=== PATIENT | male | born 1975 | race Caucasian/White ===

== ENCOUNTER 2018-08-09 05:59 | Emergency (ER) | payer BC, OTHER ==
--- OUTSIDE RECORDS SUMMARY | 2018-08-09 06:02 | XMS REPORT ---
:1975 Author Organization eClinicalWorks Care Team Providers Name Role Phone Josiah Brown Provider Role Unavailable Allergies No Known Allergies Problems Problem Type Condition Code Onset Dates Condition Status Problem Obstructive sleep apnea G47.33 Active Problem Morbid (severe) obesity due to E66.01 Active excess calories Problem Depression with anxiety F41.8 Active Assessment Left ear impacted cerumen H61.22 Active Problem Body mass index (BMI) of 60.0-69.9 Z68.44 Active in adult Problem Varicose veins without complication I83.90 Active Medications Medication Code System Code Instructions Start End Date Status Dosage Date Paxil [facility] [id number] 20 MG Orally Active 1 tablet in Once a day the morning Results No Known Results Summary Purpose eClinicalWorks Submission
--- OUTSIDE RECORDS SUMMARY | 2018-08-09 06:02 | XMS REPORT ---
:1975 Author Organization eClinicalWorks Care Team Providers Name Role Phone Josiah Brown Provider Role Unavailable Allergies, Adverse Reactions, Alerts Substance Reaction Event Type N.K.D.A. Info Not Available Non Drug Allergy Problems Problem Type Condition Code Onset Dates Condition Status Assessment Encounter for general adult medical Z00.00 Active examination without abnormal findings Assessment Body mass index (BMI) of 60.0-69.9 Z68.44 Active in adult Assessment Tobacco abuse counseling Z71.6 Active Problem Obstructive sleep apnea G47.33 Active Problem Morbid (severe) obesity due to E66.01 Active excess calories Problem Depression with anxiety F41.8 Active Assessment Obstructive sleep apnea G47.33 Active Assessment Depression with anxiety F41.8 Active Problem Body mass index (BMI) of 60.0-69.9 Z68.44 Active in adult Problem Varicose veins without complication I83.90 Active Medications Medication Code System Code Instructions Start End Date Status Dosage Date Paxil [facility] [id number] 20 MG Orally Active 1 tablet in Once a day the morning Results No Known Results Summary Purpose eClinicalWorks Submission
--- OUTSIDE RECORDS SUMMARY | 2018-08-09 06:02 | XMS REPORT ---
:1975 Author Organization eClinicalWorks Care Team Providers Name Role Phone Josiah Brown Provider Role Unavailable Allergies No Known Allergies Problems Problem Type Condition Code Onset Dates Condition Status Problem Obstructive sleep apnea G47.33 Active Problem Morbid (severe) obesity due to E66.01 Active excess calories Problem Depression with anxiety F41.8 Active Assessment Acute otitis externa of left ear, H60.502 Active unspecified type Problem Body mass index (BMI) of 60.0-69.9 Z68.44 Active in adult Problem Varicose veins without complication I83.90 Active Medications Medication Code Code Instructions Start End Date Status Dosage System Date Ciprodex [facility] [id number] 0.3-0.1 % Otic April 24, Active 4 drops into Twice a day 2018 affected ear Paxil [facility] [id number] 20 MG Orally Active 1 tablet in Once a day the morning Results No Known Results Summary Purpose [employer] Submission
[2018-08-09] MEDS ORDERED: NA CHLORIDE 0.9% 1,000 ML ONE (07:04)
[2018-08-09 07:11] LABS: Absolute Lymphocytes (CBC) 0.6 K/uL (0.7-4.9); Absolute Monocytes 0.2 K/uL (0.1-1.3); Absolute Neutrophil 7.3 K/uL (1.8-8.0); Basophils % 0.2 % (0-1.3); Eosinophils % 0.2 % (0-4.4); Hematocrit 42.4 % (39.6-49.0); Lymphocytes % 6.9 % (15.3-44.8); MCH 30.8 pg (27.0-35.0); MCV 90.6 fL (80-100); MPV 7.9 fL (7.6-11.3); Monocytes % 2.8 % (3.3-12.3); RBC Red Blood Cell Count 4.68 M/uL (4.33-5.43)
[2018-08-09 07:11] LABS: Urine Blood NEGATIVE (NEG); Urine Glucose NEGATIVE (NEG); Urine Protein NEGATIVE (NEG); Urine Specific Gravity 1.025 (1.005-1.030)
[2018-08-09 07:14] LABS: ALT/SGPT 63 U/L (12-78); AST/SGOT 32 U/L (15-37); Albumin 3.9 g/dL (3.4-5.0); Alkaline Phosphatase 89 U/L (45-117); BUN Blood Urea Nitrogen 16 mg/dL (7-18); Bicarbonate 28 mmol/L (21-32); Bilirubin Direct 0.2 mg/dL (0-0.2); Bilirubin Total 0.6 mg/dL (0.2-1.0); Glucose Level 103 mg/dL (74-106); Lipase 65 U/L (73-393); Potassium 3.9 mmol/L (3.5-5.1); Protein, Total 7.4 g/dL (6.4-8.2); Sodium Level 139 mmol/L (136-145)
[2018-08-09 07:15] LABS: Urine RBC NONE SEEN /HPF (NONE SEEN)
[2018-08-09 07:16] LABS: Urine Bacteria NONE SEEN /HPF (NONE SEEN); Urine Culture Reflex Order NOT NEEDED
--- NOTE | 2018-08-09 07:38 | RAD REPORT ---
EXAM DESCRIPTION: CT - Stone Protocol - 08/09/2018 7:05 am CLINICAL HISTORY: Back pain, fevers and chills COMPARISON: None. TECHNIQUE: Axial 5 mm thick images were obtained without oral or IV contrast. The jfkia-[id number] span s the entirety of the system including uppermost abdomen and lung bases. All CT scans are performed using dose optimization technique as appropriate and may include automated exposure control or mA/KV adjustment according to patient size. FINDINGS: No hydronephrosis is present and no obstructing ureteral calculi. No suspicious renal mass es. Isodense masses and pyelonephritis are not excluded on a stone protocol CT scan. No urinary bladd er suspicious finding. Imaged portions of the liver, spleen and pancreas show no suspicious findings on non-contrast imaging . No gallbladder or biliary tree abnormality identified. No significant adrenal finding. Liver attenu ation indicates fatty infiltration. Prostate gland and seminal vesicles are normal range. No suspicious bowel findings. No appendicitis findings. No active GI process seen. No hernia, mass or bulky lymphadenopathy noted. No free air, free fluid or inflammatory stranding. No significant bony abnormality. IMPRESSION: No hydronephrosis, obstructing calculus or acute finding. Isodense masses and pyelonephritis are not excluded on stone protocol technique. No acute GI process seen. No acute findings identifiable.
[2018-08-09] MEDS ORDERED: CLINDAMYCIN 900MG/D5W 900 MG/50 ML BAG IV ONE (08:47)
--- NOTE | 2018-08-09 09:02 | ER ---
Nurse's Notes [facility] Name: Dave Smith Age: 43 yrs Sex: Male : 1975 Arrival Date: 08/09/2018 Time: 06:01 Bed 14 Private MD: Diagnosis: Low back pain;Fever, unspecified;Cellulitis of right lower limb Presentation: 08/09 06:25 Presenting complaint: Patient states: I am having back pain along with body shakes and jb4 chills that started yesterday. Transition of care: patient was not received from another setting of care. Onset of symptoms was August 08, 2018. Risk Assessment: Do you want to hurt yourself or someone else? Patient reports no desire to harm self or others. Initial Sepsis Screen: Does the patient meet any 2 criteria? Temp <36.0*C (96.8*F)) or > 38.3*C (100.9*F). HR > 90 bpm. Yes Does the patient have a suspected source of infection? No. Patient's initial sepsis screen is negative. Care prior to arrival: None. 06:25 Method Of Arrival: Ambulatory jb4 06:25 Acuity: BREE 3 jb4 Triage Assessment: 06:27 General: Appears in no apparent distress. uncomfortable, Behavior is calm, cooperative, jb4 appropriate for age. Pain: Complains of pain in lumbar area and right low back Pain does not radiate. Pain currently is 5 out of 10 on a pain scale. at worst was 9 out of 10 on a pain scale. EENT: No signs and/or symptoms were reported regarding the EENT system. Neuro: Level of Consciousness is awake, alert, obeys commands, Oriented to person, place, time, situation. Cardiovascular: Heart tones S1 S2 Patient's skin is warm and dry. Respiratory: Airway is patent Respiratory effort is even, unlabored, Respiratory pattern is regular, symmetrical, Breath sounds are clear bilaterally. GI: No signs and/or symptoms were reported involving the gastrointestinal system. : No signs and/or symptoms were reported regarding the genitourinary system. Derm: Skin is intact, Skin is pink, warm \T\ dry. Musculoskeletal: Circulation, motion, and sensation intact. Historical: - Allergies: 06:27 No Known Allergies; jb4 - Home Meds: 06:27 Paxil Oral [Active]; jb4 - PMHx: 06:27 Depression; jb4 - PSHx: 06:27 None; jb4 - Immunization history:: Adult Immunizations up to date, Flu vaccine status is unknown. - Social history:: Smoking status: Patient/guardian denies using tobacco, Patient uses alcohol, occasionally. - Ebola Screening: : No symptoms or risks identified at this time. Screenin:32 Abuse screen: Denies threats or abuse. Nutritional screening: No deficits noted. jb4 Tuberculosis screening: No symptoms or risk factors identified. Fall Risk None identified. Assessment: 06:32 General: see triage assessment. jb4 07:15 General: Appears in no apparent distress. comfortable, obese, Behavior is calm, rb1 cooperative, Reports chills for fever for. Pain: Denies pain. Neuro: Level of Consciousness is awake, alert, obeys commands, Oriented to person, place, time, situation. Cardiovascular: Capillary refill < 3 seconds is brisk in bilateral fingers. Respiratory: Airway is patent Respiratory effort is even, unlabored, Respiratory pattern is regular, symmetrical. Derm: Skin is pink, warm \T\ dry. 07:48 Reassessment: Notified Glo of temperature of 102.4. Received order to stop the NS rb1 1000 ml \T\ 125 ml/h and administer the NS 1 L as a bolus and to remove pt. socks. 08:15 Reassessment: Patient appears in no apparent distress at this time. Patient and/or rb1 family updated on plan of care and expected duration. Pain level reassessed. Patient is alert, oriented x 3, equal unlabored respirations, skin warm/dry/pink. 08:22 Reassessment: Pt. went to X-ray. rb1 08:38 Reassessment: Patient appears in no apparent distress at this time. Patient and/or rb1 family updated on plan of care and expected duration. Pain level reassessed. Temperature decreased to 99.2 orally. 09:06 Reassessment: Discharge pending due to IV antibiotics infusing. rb1 09:15 Reassessment: Patient appears in no apparent distress at this time. No changes from rb1 previously documented assessment. Vital Signs: 06:27 BP 160 / 91; Pulse 115; Resp 20; Temp 101.4; Pulse Ox 98% on R/A; Weight 176.9 kg; jb4 Height 5 ft. 11 in. (180.34 cm); Pain 5/10; 07:15 BP 158 / 83; Pulse 106; Resp 20; Pulse Ox 99% on R/A; rb1 07:30 BP 159 / 82; Pulse 103; Resp 20; Pulse Ox 100% on R/A; rb1 07:48 Temp 102.4(O); rb1 08:15 BP 149 / 80; Pulse 104; Resp 19; Pulse Ox 97% on R/A; Pain 0/10; rb1 08:21 rb1 08:38 Temp 99.2(O); rb1 09:15 BP 116 / 63; Pulse 94; Resp 20; Pulse Ox 99% ; rb1 06:27 Body Mass Index 54.39 (176.90 kg, 180.34 cm) jb4 07:48 Provider notified rb1 08:21 Pt. went to X-ray rb1 ED Course: 06:01 Patient arrived in ED. do 06:08 Zuly Cody FNP-C [facility]. snw 06:08 Romulo Rand MD is Attending Physician. snw 06:18 Julio Cesar Nunez, TRAY is Primary Nurse. jb4 06:26 Triage completed. jb4 06:27 Arm band placed on right wrist. jb4 06:30 Inserted saline lock: 20 gauge in right antecubital area, using aseptic technique. jb4 Blood collected. 06:32 Patient has correct armband on for positive identification. Bed in low position. Call jb4 light in reach. Side rails up X 1. Pulse ox on. NIBP on. 06:45 Initial lab(s) drawn, by ri, sent to lab. First set of blood cultures drawn by ri, jb4 Second set of blood cultures drawn Urine collected:. 07:02 CT completed. Patient moved to CT via wheelchair. Patient moved back from CT. kw1 07:05 CT Stone Protocol In Process Unspecified. EDMS 08:25 Patient moved to radiology via wheelchair. tm4 08:26 X-ray completed. Patient tolerated procedure well. tm4 08:30 Chest Pa And Lat (2 Views) XRAY In Process Unspecified. EDMS 09:18 No provider procedures requiring assistance completed. IV discontinued, intact, rb1 bleeding controlled, No redness/swelling at site. Pressure dressing applied. Administered Medications: 07:15 Drug: NS 0.9% 1000 ml Route: IV; Rate: 125 ml/hr; Site: right antecubital; rb1 07:49 Follow up: Rate change bolus rb1 08:46 Drug: Clindamycin 900 mg Route: IVPB; Infused Over: 30 mins; Site: right antecubital; rb1 09:16 Follow up: IV Status: Completed infusion rb1 09:17 Follow up: Response: No adverse reaction rb1 Outcome: 09:01 Discharge ordered by MD. harry 09:18 Discharged to home ambulatory. rb1 09:18 Condition: stable 09:18 Discharge instructions given to patient, Instructed on discharge instructions, follow up and referral plans. medication usage, Demonstrated understanding of instructions, follow-up care, medications, Prescriptions given X 2. 09:19 Patient left the ED. rb1 Signatures: Dispatcher [employer] EDMS Zuly Cody FNP-C LAUNDRY HOUSEKEEPING AIDE-Dinora Everett tm4 Zulma Rueda, RN RN rb1 Lizett Arechiga James, RN RN jb4 Elvi Hickman kw1 Corrections: (The following items were deleted from the chart) 07:44 07:15 BP 158 / 83; Pulse 106bpm; Resp 20bpm; Pulse Ox 99% RA; jb4 jb4 07:44 07:10 General: Appears in no apparent distress. comfortable, obese, Behavior is calm, jb4 cooperative, Reports chills for fever for jb4 :44 07:10 Neuro: Level of Consciousness is awake, alert, obeys commands, Oriented to jb4 person, place, time, situation, jb4 07:44 07:10 Pain: Complains of pain in right low back jb4 jb4 07:44 07:10 Cardiovascular: Capillary refill < 3 seconds is brisk in bilateral fingers jb4 jb4 07:44 07:10 Respiratory: Airway is patent Respiratory effort is even, unlabored, Respiratory jb4 pattern is regular, symmetrical, jb4 :44 07:10 Derm: Skin is pink, warm \T\ dry. jb4 jb4 07:52 07:15 Temp 102.4F Oral; Provider notified; rb1 rb1
--- NOTE | 2018-08-09 09:02 | EDPHYS ---
Physician Documentation [facility] Name: Dave Smith Age: 43 yrs Sex: Male : 1975 Arrival Date: 08/09/2018 Time: 06:01 Bed 14 Private MD: ED Physician Romulo Rand HPI: 08/09 06:48 This 43 yrs old Male presents to ER via Ambulatory with complaints of Back snw Pain, Chills, Shaking. 06:48 The patient presents with pain that is acute, s/p using machine container washer one week ago, snw saw chiropractor and felt a bit better. Pt states today with more intense back pain, chills. The symptoms are located in the low back. Onset: The symptoms/episode began/occurred gradually, 1 week(s) ago, and became worse and became persistent. The pain does not radiate. Associated signs and symptoms: Pertinent positives: fever. The problem was sustained using machine container washer. Modifying factors: The patient symptoms are alleviated by nothing. Severity of symptoms: At their worst the symptoms were severe. The patient has not experienced similar symptoms in the past. The patient has not recently seen a physician, the patient's primary care provider is Dr. Ibeth Krishnan x 1 visit. Pt took three tylenol and three motrin just PAINTER HELPER, temp 101.4 in ED. Historical: - Allergies: 06:27 No Known Allergies; jb4 - Home Meds: 06:27 Paxil Oral [Active]; jb4 - PMHx: 06:27 Depression; jb4 - PSHx: 06:27 None; jb4 - Immunization history:: Adult Immunizations up to date, Flu vaccine status is unknown. - Social history:: Smoking status: Patient/guardian denies using tobacco, Patient uses alcohol, occasionally. - Ebola Screening: : No symptoms or risks identified at this time. ROS: 06:48 Eyes: Negative for injury, pain, redness, and discharge, ENT: Negative for injury, snw pain, and discharge, Neck: Negative for injury, pain, and swelling, Cardiovascular: Negative for chest pain, palpitations, and edema, Respiratory: Negative for shortness of breath, cough, wheezing, and pleuritic chest pain, Abdomen/GI: Negative for abdominal pain, nausea, vomiting, diarrhea, and constipation, : Negative for injury, bleeding, discharge, and swelling, MS/Extremity: Negative for injury and deformity, Skin: Negative for injury, rash, and discoloration, Neuro: Negative for headache, weakness, numbness, tingling, and seizure. 06:48 Constitutional: Positive for fatigue, fever, malaise. 06:48 Back: Positive for pain at rest, pain with movement. Exam: 06:45 Head/Face: Normocephalic, atraumatic. Eyes: Pupils equal round and reactive to light, snw extra-ocular motions intact. Lids and lashes normal. Conjunctiva and sclera are non-icteric and not injected. Cornea within normal limits. Periorbital areas with no swelling, redness, or edema. ENT: Nares patent. No nasal discharge, no septal abnormalities noted. Tympanic membranes are normal and external auditory canals are clear. Oropharynx with no redness, swelling, or masses, exudates, or evidence of obstruction, uvula midline. Mucous membranes moist. Neck: Trachea midline, no thyromegaly or masses palpated, and no cervical lymphadenopathy. Supple, full range of motion without nuchal rigidity, or vertebral point tenderness. No Meningismus. Chest/axilla: Normal chest wall appearance and motion. Nontender with no deformity. No lesions are appreciated. 06:45 Constitutional: The patient appears awake, anxious, obese, restless, uncomfortable. 06:45 Cardiovascular: Rate: tachycardic, Rhythm: regular, Pulses: no pulse deficits are appreciated, Heart sounds: normal. 06:45 Respiratory: the patient does not display signs of respiratory distress, Respirations: shallow respirations, Breath sounds: are clear throughout. 06:45 Abdomen/GI: Exam negative for 06:45 Back: pain, that is mild, that is moderate, ROM is normal, normal spinal alignment noted, vertebral tenderness, is not appreciated, muscle spasm, is not present. 06:45 Skin: Appearance: Color: pale, diaphoresis is noted. 06:45 Neuro: Exam negative for acute changes. Vital Signs: 06:27 BP 160 / 91; Pulse 115; Resp 20; Temp 101.4; Pulse Ox 98% on R/A; Weight 176.9 kg; jb4 Height 5 ft. 11 in. (180.34 cm); Pain 5/10; 07:15 BP 158 / 83; Pulse 106; Resp 20; Pulse Ox 99% on R/A; rb1 07:30 BP 159 / 82; Pulse 103; Resp 20; Pulse Ox 100% on R/A; rb1 07:48 Temp 102.4(O); rb1 08:15 BP 149 / 80; Pulse 104; Resp 19; Pulse Ox 97% on R/A; Pain 0/10; rb1 08:21 rb1 08:38 Temp 99.2(O); rb1 09:15 BP 116 / 63; Pulse 94; Resp 20; Pulse Ox 99% ; rb1 06:27 Body Mass Index 54.39 (176.90 kg, 180.34 cm) jb4 07:48 Provider notified rb1 08:21 Pt. went to X-ray rb1 MDM: 06:44 Patient medically screened. snw 09:06 Data reviewed: vital signs, nurses notes. Data interpreted: Pulse oximetry: on room air snw is 97 %. Interpretation: normal. Counseling: I had a detailed discussion with the patient and/or guardian regarding: the historical points, exam findings, and any diagnostic results supporting the discharge/admit diagnosis, the presence of at least one elevated blood pressure reading (>120/80) during this emergency department visit, lab results, radiology results, the need for outpatient follow up, to return to the emergency department if symptoms worsen or persist or if there are any questions or concerns that arise at home. Response to treatment: the patient's symptoms have mildly improved after treatment. Special discussion: I have referred the patient to see his PCP for further evaluation of high blood pressure. I discussed in detail with the patient the higher chance of wound infection based on his presenting history. Based on the history and exam findings, there is no indication for further emergent testing or inpatient evaluation. I discussed with the patient/guardian the need to see the primary care provider for further evaluation of the symptoms. 08/09 06:09 Order name: Urine Culture snw 08/09 06:09 Order name: Urine Microscopic Only; Complete Time: 07:29 snw 08/09 06:23 Order name: Flu; Complete Time: 07:29 snw 08/09 06:23 Order name: Basic Metabolic Panel; Complete Time: 07:29 snw 08/09 06:23 Order name: CBC with Diff snw 08/09 06:23 Order name: Hepatic Function; Complete Time: 07:29 snw 08/09 06:23 Order name: CT Stone Protocol; Complete Time: 07:48 snw 08/09 06:23 Order name: Lipase; Complete Time: 07:29 snw 08/09 06:23 Order name: Blood Culture Adult (2) snw 08/09 06:58 Order name: Urine Dipstick--Ancillary (enter results); Complete Time: 07:29 mw2 08/09 07:15 Order name: CBC Smear Scan EDMS 08/09 08:01 Order name: Chest Pa And Lat (2 Views) XRAY snw 08/09 06:09 Order name: Urine Dipstick-Ancillary (obtain specimen); Complete Time: 07:09 snw 08/09 06:23 Order name: IV Saline Lock; Complete Time: 07:09 snw 08/09 06:23 Order name: Labs collected and sent; Complete Time: 07:09 snw Administered Medications: 07:15 Drug: NS 0.9% 1000 ml Route: IV; Rate: 125 ml/hr; Site: right antecubital; rb1 07:49 Follow up: Rate change bolus rb1 08:46 Drug: Clindamycin 900 mg Route: IVPB; Infused Over: 30 mins; Site: right antecubital; rb1 09:16 Follow up: IV Status: Completed infusion rb1 09:17 Follow up: Response: No adverse reaction rb1 Disposition: 19:22 Co-signature as Attending Physician, Romulo Rand MD. rn Disposition: 08/09/18 09:01 Discharged to Home. Impression: Low back pain, Fever, unspecified, Cellulitis of right lower limb. - Condition is Stable. - Discharge Instructions: Back Pain, Adult, Cellulitis, Adult, Hypertension, Musculoskeletal Pain, Back Exercises, [id number], Cryotherapy, Rehydration, Adult, Heat Therapy. - Prescriptions for Clindamycin HCl 300 mg Oral Capsule - take 1 capsule by ORAL route every 6 hours for 10 days; 40 capsule. orphenadrine citrate 100 mg Oral Tablet Sustained Release - take 1 tablet by ORAL route 2 times per day As needed; 20 tablet. - Work release form, Medication Reconciliation Form, Thank You Letter, Antibiotic Education, Prescription Opioid Use form. - Follow up: Private Physician; When: 2 - 3 days; Reason: Recheck today's complaints, Continuance of care, Re-evaluation by your physician. Follow up: Emergency Department; When: As needed; Reason: Worsening of condition. Signatures: Dispatcher [employer] EDZuly Mendoza, FREELANCE GRAPHIC DESIGNER-C FREELANCE GRAPHIC DESIGNER-Csnw Romulo Rand MD MD rn Zulma Rueda RN RN rb1 Julio Cesar Nunez RN RN jb4 Corrections: (The following items were deleted from the chart) 09:19 09:01 08/09/2018 09:01 Discharged to Home. Impression: Low back pain; Fever, rb1 unspecified; Cellulitis of right lower limb. Condition is Stable. Discharge Instructions: Back Pain, Adult, Cellulitis, Adult, Hypertension, Musculoskeletal Pain, Back Exercises, Knby-an-Zcap, Cryotherapy, Rehydration, Adult, Heat Therapy. Prescriptions for Clindamycin HCl 300 mg Oral Capsule - take 1 capsule by ORAL route every 6 hours for 10 days; 40 capsule, orphenadrine citrate 100 mg Oral Tablet Sustained Release - take 1 tablet by ORAL route 2 times per day As needed; 20 tablet. and Forms are Work release form, Medication Reconciliation Form, Thank You Letter, Antibiotic Education, Prescription Opioid Use. Follow up: Private Physician; When: 2 - 3 days; Reason: Recheck today's complaints, Continuance of care, Re-evaluation by your physician. Follow up: Emergency Department; When: As needed; Reason: Worsening of condition. snw
[2018-08-09 10:00] LABS: Blood Morphology Comment NOT SEEN (NOT SEEN); Platelet Estimate ADEQ; Urine White Blood Cell Casts OK
--- NOTE | 2018-08-09 11:31 | RAD REPORT ---
EXAM DESCRIPTION: RAD - Chest Pa And Lat (2 Views) - 08/09/2018 8:32 am CLINICAL HISTORY: Chest pain, back pain COMPARISON: None. TECHNIQUE: PA and lateral views of the chest were obtained. FINDINGS: The lungs are clear of a focal mass, infiltrate or failure finding. Lung markings are mild ly prominent. This could be baseline for the patient or indicate a mild interstitial edema or infiltr ate. Heart size is normal and central vasculature is within normal limits. No pleural effusion or pneumothorax seen. No acute bony finding noted. No aortic abnormality. IMPRESSION: Baseline examination shows mild prominence of the interstitial markings. This could be n ormal baseline for the patient or indicate mild edema or infiltrate. No focal consolidation.
== END 2018-08-09 09:19 | disposition home or self-care (01) ==
LOC: ER 05:59
DX: L03.115 Cellulitis of right lower limb (principal); R50.9 Fever, unspecified; F32.9 Major depressive disorder, single episode, unspecified
CPT/HCPCS: 36415; 71046; 74176; 76377; 80048; 80076; 81003; 81015; 83690; 85025; 87040; 87086; 87088; 87804; 96365; 99284; J7030

== ENCOUNTER 2021-08-24 18:33 | Emergency (ER) | payer BC, OTHER ==
[2021-08-24] MEDS ORDERED: ACETAMINOPHEN 325 MG TABLET ONE (19:15)
[2021-08-24] MEDS ORDERED: IBUPROFEN 400 MG TAB ONE (19:15)
[2021-08-24] MEDS ORDERED: TRAMADOL HCL 50 MG TAB ONE (19:17)
--- NOTE | 2021-08-24 20:08 | RAD REPORT ---
EXAM DESCRIPTION: RAD - Foot Right 3 View - 08/24/2021 7:51 pm CLINICAL HISTORY: PAIN COMPARISON: <Comparisons> FINDINGS: Nondisplaced fracture along the metadiaphysis of the fifth proximal metatarsal. IMPRESSION: Nondisplaced fifth proximal metadiaphyseal metatarsal fracture.
--- NOTE | 2021-08-24 20:22 | ER ---
Nurse's Notes [facility] Name: Dave Smith Age: 46 yrs Sex: Male : 1975 Arrival Date: 08/24/2021 Time: 18:37 Bed 25 Private MD: Diagnosis: Nondisplaced fracture of fifth metatarsal bone, right foot Presentation: 08/24 18:49 Chief complaint: Patient states: Saw Dr Marx about two weeks ago for Right foot vg1 pain. Pt states that PCP stated 'it may be a nerve issue'. Pt states that today heard and felt a pop from fifth digit up to ankle. Pt states pain 5/10 now but when bearing weight its 10/10 and is unable to walk well. Coronavirus screen: Vaccine status: Patient reports receiving the 2nd dose of the covid vaccine. Client denies travel out of the [place] in the last 14 days. Ebola Screen: Patient negative for fever greater than or equal to 101.5 degrees Fahrenheit, and additional compatible Ebola Virus Disease symptoms. Initial Sepsis Screen: Does the patient meet any 2 criteria? No. Patient's initial sepsis screen is negative. Does the patient have a suspected source of infection? No. Patient's initial sepsis screen is negative. Risk Assessment: Do you want to hurt yourself or someone else? Patient reports no desire to harm self or others. Onset of symptoms was August 24, 2021. 18:49 Method Of Arrival: Wheelchair vg1 18:49 Acuity: BREE 4 vg1 Triage Assessment: 18:52 General: Appears in no apparent distress. uncomfortable, Behavior is calm, cooperative. vg1 Pain: Complains of pain in lateral side of right foot, right lateral malleolus, right fifth toe and Right fifth toenail Pain currently is 5 out of 10 on a pain scale. at worst was 10 out of 10 on a pain scale. Historical: - Allergies: 18:52 No Known Allergies; vg1 - Home Meds: 18:52 Paxil Oral [Active]; vg1 - PMHx: 18:52 Depression; vg1 - PSHx: 18:52 None; vg1 - Immunization history:: Adult Immunizations up to date, Client reports receiving the 2nd dose of the Covid vaccine. - Social history:: Smoking status: Patient reports use of chewing tobacco. Screenin:20 Abuse screen: Denies threats or abuse. Nutritional screening: No deficits noted. ad1 Tuberculosis screening: No symptoms or risk factors identified. Fall Risk None identified. Assessment: 19:14 General: Appears in no apparent distress. Behavior is calm, cooperative, appropriate ad1 for age. Pain: Complains of pain in right lateral foot in area beteween his ankle and small toe. Pain currently is 5 out of 10 on a pain scale. at worst was 10 out of 10 on a pain scale. Neuro: No deficits noted. Cardiovascular: No deficits noted. Heart tones S1 S2 present. Respiratory: No deficits noted. Airway is patent Trachea midline. GI: No signs and/or symptoms were reported involving the gastrointestinal system. : No signs and/or symptoms were reported regarding the genitourinary system. EENT: No signs and/or symptoms were reported regarding the EENT system. Derm: Skin is intact. Musculoskeletal: Reports pain to left foot 10/10 with ambulation. 20:00 Reassessment: No changes from previously documented assessment. Patient and/or family ad1 updated on plan of care and expected duration. Pain level reassessed. Patient is alert, oriented x 3, equal unlabored respirations, skin warm/dry/pink. 21:00 Reassessment: Patient is alert, oriented x 3, equal unlabored respirations, skin ad1 warm/dry/pink. Applied walking boot at this time. Vital Signs: 18:49 BP 151 / 74; Pulse 65; Resp 18; Temp 97.6; Pulse Ox 100% ; Weight 199.58 kg; Height 5 vg1 ft. 11 in. (180.34 cm); Pain 5/10; 19:22 BP 136 / 73; Pulse 60; Resp 18; Pulse Ox 99% ; ad1 20:30 BP 144 / 77; Pulse 57; Resp 18; Pulse Ox 99% ; ad1 18:49 Body Mass Index 61.37 (199.58 kg, 180.34 cm) vg1 ED Course: 18:37 Patient arrived in ED. mr 18:52 Triage completed. vg1 18:52 Arm band placed on. vg1 19:00 Danis Quezada PA is PHCP. cp 19:00 Opal Covington MD is Attending Physician. cp 19:51 XRAY Foot RIGHT 3 View In Process Unspecified. EDMS 20:16 Librado Holden MD is Referral Physician. cp 21:20 Patient has correct armband on for positive identification. ad1 21:20 No provider procedures requiring assistance completed. Patient did not have IV access ad1 during this emergency room visit. Administered Medications: 19:20 Drug: Ibuprofen 800 mg Route: PO; fu 21:13 Follow up: Response: No adverse reaction ad1 19:20 Drug: Tylenol 650 mg Route: PO; fu 21:12 Follow up: Response: No adverse reaction ad1 19:20 Drug: UltRAM (traMADol) 50 mg Route: PO; fu 21:12 Follow up: Response: No adverse reaction ad1 Outcome: 20:21 Discharge ordered by MD. cp 21:18 Discharged to home with crutches. ad1 21:18 Condition: stable 21:18 Discharge instructions given to patient, Instructed on discharge instructions, follow up and referral plans. Demonstrated understanding of instructions, follow-up care, medications, Prescriptions given X 2. 21:21 Patient left the ED. ad1 Signatures: Dispatcher [employer] [facility] Nevaeh Escobedo Anna, RN RN ad1 Danis Quezada PA PA Les Melchor, RN RN Piper De Leon RN RN vg1
--- NOTE | 2021-08-24 20:22 | EDPHYS ---
Physician Documentation [facility] Name: Dave Smith Age: 46 yrs Sex: Male : 1975 Arrival Date: 08/24/2021 Time: 18:37 Bed 25 Private MD: ED Physician Opal Covington HPI: 08/24 19:10 This 46 yrs old Male presents to ER via Wheelchair with complaints of Foot cp Pain. 19:10 The patient presents with pain, that is acute. cp 19:10 The complaints affect the lateral aspect of right foot. Onset: The symptoms/episode cp began/occurred 2 week(s) ago. Modifying factors: the symptoms are aggravated by weight bearing. 19:10 Associated signs and symptoms: Pertinent negatives calf tenderness, numbness, warmth. cp Historical: - Allergies: 18:52 No Known Allergies; vg1 - Home Meds: 18:52 Paxil Oral [Active]; vg1 - PMHx: 18:52 Depression; vg1 - PSHx: 18:52 None; vg1 - Immunization history:: Adult Immunizations up to date, Client reports receiving the 2nd dose of the Covid vaccine. - Social history:: Smoking status: Patient reports use of chewing tobacco. ROS: 19:15 MS/extremity: Positive for pain, of the lateral side of right foot, Negative for injury cp or acute deformity, decreased range of motion. 19:15 Constitutional: Negative for body aches, chills, fever, poor PO intake. cp 19:15 Respiratory: Negative for cough, shortness of breath, wheezing. 19:15 Back: Negative for pain at rest, pain with movement. 19:15 Skin: Negative for rash. 19:15 Neuro: Negative for numbness. 19:15 All other systems are negative. Exam: 19:20 Constitutional: The patient appears in no acute distress, alert, awake, non-toxic, well cp developed, well nourished, obese. 19:20 Head/Face: Normocephalic, atraumatic. cp 19:20 Cardiovascular: Rate: normal. 19:20 Respiratory: the patient does not display signs of respiratory distress, Respirations: normal, no use of accessory muscles, no retractions. 19:20 Musculoskeletal/extremity: Extremities: grossly normal except: noted in the lateral side of right foot at base of right fifth metatarsal: pain, tenderness, There is no evidence of ecchymosis, erythema, Pulses: noted to be 2+ in the right dorsalis pedis artery, Joints: the right ankle displays swelling, no pain and/or tenderness to palpation. 19:20 Skin: cellulitis, is not appreciated, no rash present. Vital Signs: 18:49 BP 151 / 74; Pulse 65; Resp 18; Temp 97.6; Pulse Ox 100% ; Weight 199.58 kg; Height 5 vg1 ft. 11 in. (180.34 cm); Pain 5/10; 19:22 BP 136 / 73; Pulse 60; Resp 18; Pulse Ox 99% ; ad1 20:30 BP 144 / 77; Pulse 57; Resp 18; Pulse Ox 99% ; ad1 18:49 Body Mass Index 61.37 (199.58 kg, 180.34 cm) vg1 Procedures: 21:20 Splinting: Splint applied to right foot using walking boot. applied by nurse. Examined cp by me, post splint application: neurovascular intact, Patient tolerated well. MDM: 19:00 Patient medically screened. cp 20:00 Differential diagnosis: dislocation, closed fracture. cp 20:20 Data reviewed: vital signs, nurses notes, radiologic studies, plain films. cp 20:20 Test interpretation: by ED physician or midlevel provider: plain radiologic studies. cp Counseling: I had a detailed discussion with the patient and/or guardian regarding: the historical points, exam findings, and any diagnostic results supporting the discharge/admit diagnosis, radiology results, the need for outpatient follow up, for definitive care, a orthopedic surgeon, to return to the emergency department if symptoms worsen or persist or if there are any questions or concerns that arise at home. Response to treatment: the patient's symptoms have markedly improved after treatment, and as a result, I will discharge patient. 08/24 19:10 Order name: XRAY Foot RIGHT 3 View; Complete Time: 20:11 cp 08/24 20:11 Order name: Walking boot; Complete Time: 21:13 cp 08/24 20:11 Order name: Crutches; Complete Time: 21:13 cp Administered Medications: 19:20 Drug: Ibuprofen 800 mg Route: PO; fu 21:13 Follow up: Response: No adverse reaction ad1 19:20 Drug: Tylenol 650 mg Route: PO; fu 21:12 Follow up: Response: No adverse reaction ad1 19:20 Drug: UltRAM (traMADol) 50 mg Route: PO; fu 21:12 Follow up: Response: No adverse reaction ad1 Disposition: 20:30 Chart complete. cp Disposition Summary: 08/24/21 20:21 Discharge Ordered Location: Home cp Problem: new cp Symptoms: have improved cp Condition: Stable cp Diagnosis - Nondisplaced fracture of fifth metatarsal bone, right foot cp Followup: cp - With: Librado Holden MD - When: 1 week - Reason: Recheck today's complaints Discharge Instructions: - Discharge Summary Sheet cp - Metatarsal Fracture cp Forms: - Medication Reconciliation Form cp - Thank You Letter cp - Antibiotic Education cp - Prescription Opioid Use cp - Work release form fu Prescriptions: - Ibuprofen 800 mg Oral Tablet - take 1 tablet by ORAL route every 8 hours As needed take with food; 30 tablet; cp Refills: 0, Product Selection Permitted - Ultracet 37.5-325 mg Oral Tablet - take 1 tablet by ORAL route every 6 hours - for up to 5 days; do not exceed 8 cp tablets per day.; 20 tablet; Refills: 0, Product Selection Permitted Addendum: 08/29/2021 15:38 Co-signature as Attending Physician, Opal rodrigues a2 Signatures: Dispatcher [employer] EDDanis Mcguire PA PA cp Umadhay, Felix, RN Opal Coppola MD MD ma2 Garcia, Victoria, RN RN vg1 DelToro, Anna RN ad1
[2021-08-24 21:25] VITALS: TEMP 97.6
[2021-08-24 21:27] VITALS: O2SAT 99
[2021-08-24 21:29] VITALS: BP 144/77
--- OUTSIDE RECORDS SUMMARY | 2021-09-01 13:27 | XMS REPORT | Continuity of Care Document ---
:1975 Author Organization [facility] t Address [address] [place] [address] Care Team Providers Name Role Phone PCP, DOES NOT HAVE A Primary Care Physician Unavailable Janene APONTE Attending Clinician Unavailable Fay LOMBARDI L Attending Clinician Payers Payer Name Policy Type Policy Number Effective Date Expiration Date 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 R sulcus Obstructiv Obstructiv Disease Active Overview : Univers e sleep e sleep 1-20 Formattin ity o f apnea apnea 00:00: g of this [place] 00 note Medical might be Branch different from the original. Sleep study 10/22/2015 [facility] [address] ,[address], [place], [place] BIPAP prescribe d Gastroesop Gastroesop Disease Active U nivers hageal hageal 1-20 ity of reflux reflux 00:00: [place] disease disease 00 Medical with with Branch esophagiti esophagiti s s Nonspecifi Nonspecifi Disease Active Overview : Univers c c 3- Formattin ity of elevation elevation 00:00: g of this [place] levels of levels 00 note Medi alena of of might be Branch transamina transamina different se or se or from the lactic lactic original. acid acid Liver dehydrogen dehydrogen tests ase (LDH) ase (LDH) (AST and ALT) are slightly high at 42 and 64 Obesity Obesity Disease Active Univers 12-16 ity of 00:00: [place] 00 Medical Branch Tobacco Tobacco Disease Active Overview: Univ ers abuse abuse 12-16 Formattin ity of 00:00: g of this note Medical might be Branch different from the original. Dips 1/2 can daily Headache Headache Disease Active Overview: Un pratima 4-12 Formattin ity of 00:00: g of this note Medical might be Branch different from the original. ICD10 Diagnosis Term Back Tender Paper Machine Utility Rosacea Rosacea Disease Active Univers 4- ity of 00:00: Medical Branch Daytime Daytime Disease Active Univers somnolence somnolence 01-29 it y of 00:00: Medical Branch Allergic Allergic Disease Active 2011-10 Overview: Un pratima rhinitis rhinitis 2-19 Formattin ity of 00:00: g of this 00 note Medical might be Branch different from the original. ICD10 Diagnosis Term Back Tender [employer] Machine Utility Undersocia Undersocia Disease Active 2009-10 Overview : Univers lized lized 2-16 Formattin ity of conduct conduct 00:00: g of this [place] disorder, disorder, 00 note Medi alena aggressive aggressive might be Branch type type different from the original. ICD10 Diagnosis Term Back Tender [employer] Machine Utility Carbuncle Carbuncle Disease Active Overview: Univers and and 8 Formattin ity of Furuncle Furuncle 00:00: g of this [place] as of [place] of [place] 00 note Me dical might be Branch different from the original. R buttock Depressive Depressive Disease Active Overview : Univers disorder disorder 8-12 Formattin ity of 00:00: g of this [place] 00 note Medical might be Branch different from the original. ICD10 Diagnosis Term Back Tender Paper Machine Utility Acute Acute Disease Active Overview: Univer s upper upper 6-01 Formattin ity of respirator respirator 00:00: g of this [place] y y 00 note Medical infection infection might be Br anch different from the original. ICD10 Diagnosis Term Back Tender Paper Machine Utility Allergies, Adverse Reactions, Alerts Allergy Allergy Status Severity Reaction(s) Onset Inactive Treating Comm ents Source Name Type Date Date Clinician Fluticas Propensi Active Unknown - 2012-10 BAD Uni vers one ty to See comments 12-16 HEADACHES i ty of Propiona adverse 00:00: [place] te reaction 00 Medical s to Branch drug FLUTICAS DRUG Active Med Unknown-Cmnt 2012-10 Un pratima ONE INGREDI 2 ity of PROPIONA 00:00: [place] TE 00 Medical Branch Social History Social Habit Start Date Stop Date Quantity Comments Source History SDOH University o f Alcohol Frequency [facility] edical Branch History SDOH University o f Alcohol Std [place] Medical Drinks Branch History SDWY University o f Alcohol Binge [place] Medic al Branch Exposure to Not sure [facility] SARS-CoV-2 [facility] (event) Branch History of Snuff User University of tobacco use [facility] Alcohol intake 2021-08-29 2021-08-29 Current drinker Unive rsity of 00:00:00 00:00:00 of alcohol [facility] (finding) Branch Alcohol Comment 2009-05-31 2009-05-31 6 beers/wwek Univers ity of 00:00:00 00:00:00 [facility] Sex Ass[birth year] Universit y of 00:00:00 00:00:00 [facility] Smoking Status Start Date Stop Date Source Never smoker [facility] Medications Ordered Filled Start Stop Current Ordering Indication Dosage Frequency Signature Comments Components Source Medication Medication Date Date Medication? Clinician (SIG) Name Name ibuprofen 2020-10 Yes Univers 800 mg 1-06 ity of tablet 00:00: [place] 00 [facility] traMADoL-ac 2020-10 Yes Tonia reveles etaminophen 1-06 ity of 37.5-325 mg 00:00: [place] per tablet 00 Medical Branch ibuprofen 2020-10 Yes Univers 800 mg 1-06 ity of tablet 00:00: [place] [facility] traMADoL-ac 2020-10 Yes Tonia s etaminophen 1-06 ity of 37.5-325 mg 00:00: [place] per tablet Medical Branch pregabalin 2020-10 Yes Univers 75 mg 0-21 ity of capsule 00:00: [place] 00 [facility] Branch pregabalin 2020-10 Yes Univers 75 mg 0-21 ity of capsule 00:00: Medical Branch hydroCHLORO 0 Yes Univer s thiazide 25 9-20 ity of mg tablet 00:00: Medical Branch meloxicam Yes Univers 7.5 mg 9-20 ity of tablet 00:00: Medical Branch hydroCHLORO Yes Univer s thiazide 25 9-20 ity of mg tablet 00:00: Medical Branch meloxicam Yes Univers 7.5 mg 9-20 ity of tablet 00:00: [place] Medical Branch naproxen Yes [id number] 500mg Take 1 Un pratima 500 mg 4-24 tablet by ity of tablet 00:00: mouth 2 [place] (two) Medical times Branch daily with meals. naproxen Yes [id number] 500mg Take 1 Un pratima 500 mg 4-24 tablet by ity of tablet 00:00: mouth 2 [place] (two) Medical times Branch daily with meals. PAROXETINE Yes TAKE ONE Uni vers 20 mg 4-09 TABLET BY ity of tablet 00:00: MOUTH ONCE [place] DAILY Medical Branch PAROXETINE Yes TAKE ONE Uni vers 20 mg 4-09 TABLET BY ity of tablet 00:00: MOUTH ONCE [place] DAILY Medical Branch OMEPRAZOLE Yes [id number] TAKE ONE Univers 40 mg 6-04 CAPSULE BY ity of capsule 00:00: MOUTH ONCE [facility] DAILY Medical Branch OMEPRAZOLE Yes [id number] TAKE ONE Univers 40 mg 6-04 CAPSULE BY ity of capsule 00:00: MOUTH ONCE [facility] DAILY Medical Branch amitriptyli Yes [id number] 10mg Take 1 Univers ne 10 mg 3-24 tablet by ity of tablet 00:00: mouth at [place] [address] bedtime. Medical 1-3 tablet Branch at the lastest 8 PM amitriptyli Yes [id number] 10mg Take 1 Univers ne 10 mg 3-24 tablet by ity of tablet 00:00: mouth at [place] [address] bedtime. Medical 1-3 tablet Branch at the lastest 8 PM Paroxetine Paroxetine Yes Fabrizio Robertson [address] [facility] HCl HCl [place] [facility] Hydrochloro Hydrochloro Yes Fabrizio Robertson [address] [facility] thiazide thiazide [place] [facility] Ciprodex Ciprodex Yes Kin Robertson [address] [facility] Immunizations Ordered Filled Immunization Date Status Comments Sour e Immunization Name Name Influenza Virus 2016-12-19 Completed Universit y of Vaccine 00:00:00 [facility] Influenza Virus 2016-12-19 Completed Universit y of Vaccine 00:00:00 [facility] Influenza Virus 2013-10-15 Completed Universit y of Vaccine (3+ yrs) 00:00:00 [facility] Influenza Virus 2013-10-15 Completed Universit y of Vaccine (3+ yrs) 00:00:00 [facility] Influenza Virus 2012-10-07 Completed Universit y of Vaccine 00:00:00 [facility] Influenza Virus 2012-10-07 Completed Universit y of Vaccine 00:00:00 [facility] Tetanus/Diptheria 2003-04-21 Completed Univers ity of 00:00:00 [facility] Tetanus/Diptheria 2003-04-21 Completed Univers ity of 00:00:00 [facility] Vital Signs Vital Name Observation Time Observation Value Comments Source Body height 2021-08-29 21:26:00 180.3 cm [facility] Body weight 2021-08-29 21:26:00 199.583 kg [facility] BMI 2021-08-29 21:26:00 61.37 kg/m2 [facility] Procedures This patient has no known procedures. Encounters Start End Encounter Admission Attending Care Care Encounter Source Date/Time Date/Time Type Type Clinicians Facility Department ID 2021-08-29 2021-08-29 Outpatient R FAY [facility] [id number] Univers 15:30:00 15:34:22 SHIVA talha [facility] 2021-08-29 2021-08-29 Office Fay NYCAROL [id number] Univers 15:17:05 15:34:22 Visit Shiva Watters [facility] [id number] it y of DAINA [id number] [place] as SHELBY?BLEA [id number] Ar [address] MEDICAL OFFICE BUILDING 2021-02-15 2021-02-15 [facility] [id number] 2020-09-08 2020-09-08 Outpatient [facility] [id number] [facility] 2020-08-28 2020-08-28 [facility] [id number] 2020-08-25 2020-08-25 Outpatient [facility] [id number] [facility] 2020-08-23 2020-08-23 [facility] [id number] 2020-08-23 2020-08-23 [facility] [id number] [facility] 2020-06-09 2020-06-09 [facility] [id number] [facility] 11:00:00 11:00:00 [facility] Medicine l Medicine Outpati ent Clinics 2020-04-27 2020-04-27 [facility] [id number] 15:20:00 15:20:00 [facility] Medicine l Medicine Outpati ent Clinics 2020-04-18 2020-04-18 [facility] [id number] 09:12:00 09:12:00 [facility] Medicine l Medicine Outpati ent Clinics 2020-04-07 2020-04-07 [facility] [id number] 08:47:00 08:47:00 [facility] Medicine l Medicine Outpati ent Clinics 2019-11-25 2019-11-25 [facility] [id number] [facility] 13:00:00 13:00:00 [facility] Medicine l Medicine Outpati ent Clinics 2018-04-24 2018-04-24 Outpatient Madelaine Victor [id number] 10:30:00 10:30:00 [facility] 2018-04-17 2018-04-17 Outpatient Madelaine Victor [id number] 10:15:00 10:15:00 [facility] 2018-03-18 2018-03-18 Outpatient Madelaine Victor [id number] [facility] [address] 16:15:00 16:15:00 t [facility] ent Clinics Results This patient has no known results.
== END 2021-08-24 21:21 | disposition home or self-care (01) ==
LOC: ER 18:33
DX: S92.354A Nondisplaced fracture of fifth metatarsal bone, right foot, initial encounter for closed fracture (principal); F32.A Depression, unspecified; F17.220 Nicotine dependence, chewing tobacco, uncomplicated
CPT/HCPCS: 99283